=== PATIENT | female | born 1960 | race Caucasian/White ===

== ENCOUNTER 2020-07-24 06:38 | Outpatient (CLI) | payer SELFPAY ==
[2020-07-24 07:40] LABS: Basophils Absolute Auto 0.1 K/mm3 (0.0-0.1); Eosinophils Absolute Auto 0.2 K/mm3 (0-0.3); Eosinophils Percent Auto 4.8 % (0-4.4); Hematocrit 36.8 % (37.0-47.0); Immature Granulocyte Absolute 0.02 K/mm3 (0.00-0.031); Immature Granulocyte Percent A 0.5 % (0-0.5); Lymphocytes Absolute Auto 1.33 K/mm3 (0.9-3.2); Lymphocytes Percent Auto 33.9 % (18.3-44.2); Mean Corpuscular HGB Conc 32.6 g/dl (32-36); Mean Corpuscular Hemoglobin 32.3 pg (26-34); Mean Corpuscular Volume 99.2 fl (80-100); Mean Platelet Volume 9.7 fl (7.4-10.4); Monocytes Absolute Auto 0.3 K/mm3 (0.1-0.6); Monocytes Percent Auto 7.9 % (2.6-8.5); Neutrophils Percent Auto 50.9 % (45.5-73.1); Platelet Count Result 233 k/mm3 (150-375); Red Blood Count 3.71 M/mm3 (4.2-5.4); Red Cell Distribution Width 12.2 % (11.5-14.5); White Blood Count 3.9 K/mm3 (4.5-10.0)
[2020-07-24 07:53] LABS: Alanine Aminotransferase 16 U/L (4-35); Albumin Level 4.2 g/dL (3.5-5.1); Alkaline Phosphatase 66 U/L (38-126); Anion Gap 5 mmol/L (8-16); Aspartate Amino Transferase 25 U/L (14-36); Bilirubin,Total 1.3 mg/dL (0.2-1.3); Blood Urea Nitrogen 14 mg/dL (7-17); Calcium 9.4 mg/dL (8.4-10.2); Carbon Dioxide 30 mmol/L (22-30); Chloride 106 mmol/L (98-107); Cholesterol 198 mg/dL (0-200); Estimated Glomerular Filt Rate > 60; Glucose 101 mg/dL (65-105); HDL Direct 44 mg/dL; Potassium 4.5 mmol/L (3.4-5.0); Sodium 141 mmol/L (137-145); Triglycerides 195 mg/dL (<150)
[2020-07-24 08:04] LABS: LDL Cholesterol Direct 113 mg/dL
== END 2020-07-24 06:39 | disposition home or self-care (01) ==
PROVIDERS: PCP Internal Medicine; Visit Provider Nurse Practitioner
DX: Z13.29 Encounter for screening for other suspected endocrine disorder (principal); E03.9 Hypothyroidism, unspecified; Z13.220 Encounter for screening for lipoid disorders
CPT/HCPCS: 36415; 80053; 80061; 84443; 85025

== ENCOUNTER 2020-08-14 16:13 | Outpatient (CLI) | payer SELFPAY ==
--- NOTE | ~2020-08-14 | US_ITS ---
EXAMINATION: US soft tissue head and neck INDICATION: Palpable lump of the posterior neck TECHNIQUE: Targeted high-resolution soft tissue ultrasound is performed in the area of clinical magdy rn. COMPARISON: None available FINDINGS: No discrete mass is identified to correlate with the reported palpable abnormality of the p osterior neck. Normal subcutaneous tissues are identified. IMPRESSION: 1. No discrete sonographically detected masses identified. Clinical follow-up is recommended. Reviewed, dictated and finalized at location A. R DRIER OPERATOR IMPRESSION: 1. No discrete sonographically detected masses identified. Clinical follow-up i s recommended.
== END 2020-08-14 16:14 | disposition home or self-care (01) ==
LOC: ANHIMG 16:16
PROVIDERS: PCP Internal Medicine; Visit Provider Nurse Practitioner
DX: R22.1 Localized swelling, mass and lump, neck (principal)
CPT/HCPCS: 76536

== ENCOUNTER 2020-08-24 06:36 | Outpatient (CLI) | payer SELFPAY ==
[2020-08-24 07:36] LABS: Basophils Absolute Auto 0.1 K/mm3 (0.0-0.1); Basophils Percent Auto 1.6 % (0.2-1.2); Eosinophils Absolute Auto 0.2 K/mm3 (0-0.3); Eosinophils Percent Auto 3.8 % (0-4.4); Hematocrit 36.9 % (37.0-47.0); Hemoglobin 11.7 g/dL (12.0-15.0); Immature Granulocyte Absolute 0.02 K/mm3 (0.00-0.031); Immature Granulocyte Percent A 0.4 % (0-0.5); Lymphocytes Absolute Auto 1.35 K/mm3 (0.9-3.2); Mean Corpuscular HGB Conc 31.7 g/dl (32-36); Mean Corpuscular Hemoglobin 31.5 pg (26-34); Mean Corpuscular Volume 99.2 fl (80-100); Mean Platelet Volume 9.4 fl (7.4-10.4); Monocytes Absolute Auto 0.4 K/mm3 (0.1-0.6); Monocytes Percent Auto 8.7 % (2.6-8.5); Neutrophils Absolute Auto 2.5 K/mm3 (1.3-6.7); Neutrophils Percent Auto 55.5 % (45.5-73.1); Platelet Count Result 223 k/mm3 (150-375); Red Blood Count 3.72 M/mm3 (4.2-5.4); White Blood Count 4.5 K/mm3 (4.5-10.0)
== END 2020-08-24 06:37 | disposition home or self-care (01) ==
PROVIDERS: PCP Internal Medicine; Visit Provider Nurse Practitioner
DX: Z13.29 Encounter for screening for other suspected endocrine disorder (principal); E03.9 Hypothyroidism, unspecified
CPT/HCPCS: 36415; 84443; 85025

== ENCOUNTER 2020-08-25 01:49 | Outpatient (CLI) | payer OTHER, SELFPAY ==
[2020-08-25 18:59] LABS: SARS-CoV-2 RNA PCR Negative
== END 2020-08-25 01:50 | disposition home or self-care (01) ==
LOC: ANHCOVIDDT 01:49
PROVIDERS: PCP Internal Medicine; Visit Provider Internal Medicine Gastroenterology
DX: Z01.818 Encounter for other preprocedural examination (principal); Z20.828 Contact with and (suspected) exposure to other viral communicable diseases
CPT/HCPCS: 87635; C9803; U0003

== ENCOUNTER → 2020-08-29 14:11 | Day surgery (SDC) | payer SELFPAY ==
[2020-08-29 08:07] VITALS: BP 129/69; PULSE 79; RESP 20; TEMP 36; O2SAT 98; BMI 30.9
[2020-08-29] MEDS: LACTATED RINGERS 1,000 ML 150 ML IV CONT (08:22)
--- NOTE | 2020-08-29 08:58 | WPDANESEPPF ---
Anes - Initial Pre Proc Eval Procedure: Operation Date: 08/29/20 09:30 Proposed Procedures p Screening Colonoscopy - Enrrique Armando MD Date/Time: 08/29/20 08:58 Surgeon: Enrrique Armando MD Pre Op Diagnosis: Neoplasm Screening Patient Data Age: 60 Gender: F Height: 5 ft 7 in Weight: 89.6 kg Last Vital Signs Temp 96.8 F L 08/29/20 08:07 Pulse 79 08/29/20 08:07 Resp 20 08/29/20 08:07 BP 129/69 08/29/20 08:07 Pulse Ox 98 08/29/20 08:07 Allergies Allergy/AdvReac Type Severity Reaction Status Date / Time Penicillins Allergy Unknown Hives Verified 08/29/20 08:05 Home Medications Medication Instructions Recorded Confirmed Type cyanocobalamin (vitamin B-12) 1,000 mcg PO DAILY 09/19/19 08/22/20 History 1,000 mcg/mL oral drops sertraline 100 mg tablet 100 mg PO DAILY #90 tablet 07/04/20 08/22/20 Rx ferrous sulfate 325 mg (65 mg 325 mg PO DAILY 07/09/20 08/22/20 History iron) tablet sodium,potassium,mag sulfates 17.5 See Rx Instructions PO .COMPLEX 08/23/20 Rx gram-3.13 gram-1.6 gram oral soln #354 ml levothyroxine 137 mcg tablet 137 mcg PO DAILY #90 tablet 08/28/20 08/29/20 Rx Patient hx anesthesia problems: none Family hx anesthesia problems: none PMFSH Past Medical History Medical History (Updated 07/09/20 @ 08:26 by Kristin King NP) Depression with anxiety Hemorrhoids Hernia Hypothyroidism Surgical History Surgical History (Updated 09/19/19 @ 08:05 by Kristin Clayton CMA) H/O hand surgery screws in fingers H/O umbilical hernia repair H/O: hysterectomy Family History Family History (Updated 02/22/19 @ 15:03 by DOCTOR UNKNOWN) Father Diabetes mellitus Hypertension Family history of malignant neoplasm Family history of diabetes mellitus in first degree relative Mother Hypertension Family history of heart disease in male family member before age 55 Social History Social History (Updated 09/19/19 @ 07:43 by Kristin Clayton CMA) Smoking status: Never smoker Alcohol intake: never Substance use type: does not use Living arrangements: with family Spiritual care concerns: No Anes - Eval Final PreProcedure Day of Procedure 08/29/20 08:58 Patient weight: overweight Heart: regular rate and rhythm Lungs: clear to auscultation Airway: Mallampati scale class II Neurological: alert and oriented Last oral intake: >/= 8 hours ASA classification: II Emergent: no Anesthetic plan: proceed Anesthesia type and monitoring: general GIVS and standard monitoring Informed Consent: The patient's anesthetic plan and its attendant risks and benefits were discussed with the patient/family/POA. Questions were solicited and answers provided to the satisfaction of the patient/family/POA.
--- NOTE | 2020-08-29 09:20 | PM.HPGS ---
History of Present Illness History of Present Illness Consent: Risks, benefits, and alternatives have been discussed and questions answered. Patient agrees to proceed with procedure. Chief complaint: Neoplasm Screening Narrative: Lissa Bryant is a 60 year old female here for screening colonoscopy, last one 10 years ago. Review of Systems Constitutional: Constitutional: Denies headache(s) and Denies weakness Eyes: Eyes: Denies blurry vision ENT: Reports Normal hearing present, Denies headache(s) and Denies neck pain Cardiovascular: Cardiovascular: Denies chest pain and Denies dyspnea Respiratory: Respiratory: Denies dyspnea Gastrointestinal: Gastrointestinal: Reports no additional gastrointestinal complaints Genitourinary: Genitourinary: Denies dysuria Musculoskeletal: Musculoskeletal: Denies neck pain Integumentary/Breasts: Skin/Breast: Denies dry skin Neurologic: Reports Normal hearing present, Denies headache(s) and Denies weakness Psychiatric: Psychiatric: Denies anxiety Endocrine: Endocrine: Denies change in body appearance Hematologic/Lymphatic: Hematologic/Lymphatic: Denies easy bleeding Allergic/Immunologic: Allergic/Immunologic: Denies urticaria PMFSH Past Medical History Medical History (Updated 07/09/20 @ 08:26 by Kristin King NP) Depression with anxiety Hemorrhoids Hernia Hypothyroidism Surgical History Surgical History (Updated 09/19/19 @ 08:05 by Kristin Clayton CMA) H/O hand surgery screws in fingers H/O umbilical hernia repair H/O: hysterectomy Family History Family History (Updated 02/22/19 @ 15:03 by DOCTOR UNKNOWN) Father Diabetes mellitus Hypertension Family history of malignant neoplasm Family history of diabetes mellitus in first degree relative Mother Hypertension Family history of heart disease in male family member before age 55 Social History Social History (Updated 09/19/19 @ 07:43 by Kristin Clayton CMA) Smoking status: Never smoker Alcohol intake: never Substance use type: does not use Living arrangements: with family Spiritual care concerns: No Meds Home Medications and Allergies Home Medications Medication Instructions Recorded Confirmed Type cyanocobalamin (vitamin B-12) 1,000 mcg PO DAILY 09/19/19 08/22/20 History 1,000 mcg/mL oral drops sertraline 100 mg tablet 100 mg PO DAILY #90 tablet 07/04/20 08/22/20 Rx ferrous sulfate 325 mg (65 mg 325 mg PO DAILY 07/09/20 08/22/20 History iron) tablet sodium,potassium,mag sulfates 17.5 See Rx Instructions PO .COMPLEX 08/23/20 Rx gram-3.13 gram-1.6 gram oral soln #354 ml levothyroxine 137 mcg tablet 137 mcg PO DAILY #90 tablet 08/28/20 08/29/20 Rx Allergies Allergy/AdvReac Type Severity Reaction Status Date / Time Penicillins Allergy Unknown Hives Verified 08/29/20 08:05 Vital Signs Vital Signs - 24 hr 08/29/20 08:07 Temperature 96.8 F L Pulse Rate 79 Respiratory Rate 20 Blood Pressure 129/69 Pulse Oximetry 98 Exam Const: General: comfortable and no acute distress HENMT: General nose exam: Normal nares present Eyes: General: appearance normal, both eyes and all related structures Neck: Neck: no JVD Resp: Auscultation: clear to auscultation bilaterally Cardio: Rate: regular rate Rhythm: regular rhythm GI: Inspection: non-distended GI Palp: Yes Soft to palpation Skin: General skin exam: normal color Neuro: General: gait normal Speech: normal speech Extrem: General: normal to inspection Psych: Mental Status: mental status grossly normal Assessment and Plan Assessment and plan (1) Screening for colon cancer: Code(s): Z12.11 - Encounter for screening for malignant neoplasm of colon Status: Acute Assessment and Plan: will proceed with colonoscopy
[2020-08-29 09:43] VITALS: BP 109/73; PULSE 85; RESP 18; O2SAT 99
[2020-08-29 09:53] VITALS: BP 116/70; PULSE 60; RESP 17; O2SAT 97
[2020-08-29 10:02] VITALS: BP 121/77; PULSE 59; RESP 15; O2SAT 98
== END ==
PROVIDERS: PCP Internal Medicine; Visit Provider Internal Medicine Gastroenterology
PROC: 0DJD8ZZ Inspection of Lower Intestinal Tract, Via Natural or Artificial Opening Endoscopic (ICD-10-PCS; CPT 45378; principal; 2020-08-29 09:30)
DX: Z12.11 Encounter for screening for malignant neoplasm of colon (principal); K57.30 Diverticulosis of large intestine without perforation or abscess without bleeding; K64.8 Other hemorrhoids; E03.9 Hypothyroidism, unspecified; F41.8 Other specified anxiety disorders
CPT/HCPCS: 45378; J2704; J7120

== ENCOUNTER 2020-10-25 15:48 | Outpatient (CLI) | payer SELFPAY ==
[2020-10-25 16:09] LABS: Basophils Absolute Auto 0.1 K/mm3 (0.0-0.1); Basophils Percent Auto 1.4 % (0.2-1.2); Eosinophils Absolute Auto 0.2 K/mm3 (0-0.3); Eosinophils Percent Auto 3.7 % (0-4.4); Hematocrit 34.8 % (37.0-47.0); Hemoglobin 11.4 g/dL (12.0-15.0); Immature Granulocyte Absolute 0.01 K/mm3 (0.00-0.031); Immature Granulocyte Percent A 0.2 % (0-0.5); Lymphocytes Absolute Auto 1.56 K/mm3 (0.9-3.2); Lymphocytes Percent Auto 31.7 % (18.3-44.2); Mean Corpuscular HGB Conc 32.8 g/dl (32-36); Mean Corpuscular Hemoglobin 32.1 pg (26-34); Mean Platelet Volume 9.3 fl (7.4-10.4); Monocytes Absolute Auto 0.4 K/mm3 (0.1-0.6); Monocytes Percent Auto 7.5 % (2.6-8.5); Neutrophils Absolute Auto 2.7 K/mm3 (1.3-6.7); Neutrophils Percent Auto 55.5 % (45.5-73.1); Platelet Count Result 250 k/mm3 (150-375); Red Blood Count 3.55 M/mm3 (4.2-5.4); Red Cell Distribution Width 12.8 % (11.5-14.5); White Blood Count 4.9 K/mm3 (4.5-10.0)
[2020-10-25 17:28] LABS: Folic Acid 19.3 ng/mL (2.76->20)
== END 2020-10-25 15:49 | disposition home or self-care (01) ==
LOC: ANHLAB 15:49
PROVIDERS: PCP Internal Medicine; Visit Provider Nurse Practitioner
DX: D64.9 Anemia, unspecified (principal); E03.9 Hypothyroidism, unspecified
CPT/HCPCS: 36415; 82607; 82728; 82746; 84443; 85025

== ENCOUNTER 2021-01-04 15:51 | Emergency (ER) | payer SELFPAY ==
[2021-01-04 16:03] VITALS: BP 125/67; PULSE 67; RESP 20; TEMP 36.4; O2SAT 100
--- NOTE | 2021-01-04 16:28 | ED.FEMALEGU ---
HPI - Female Genitourinary General Chief complaint: Urogenital-Female Stated complaint: uti Time Seen by Provider: 01/04/21 16:28 Source: patient Mode of arrival: ambulatory Limitations: no limitations History of Present Illness HPI Narrative: Lissa Bryant is a 61 yo female with a PMH of hypothyroid and seasonal allergies who started experiencing frequency and burning last Thursday but she was out of town and tried to flush it out and drink cranberry juice to no avail. She has had no fever no nausea vomiting diarrhea no back pain no abdominal pain. She has had frequency dysuria however and a lot of burning at the end of urination Related Data Home Medications Medication Instructions Recorded Confirmed cyanocobalamin (vitamin B-12) 1,000 mcg PO DAILY 09/19/19 11/05/20 1,000 mcg/mL oral drops ferrous sulfate 325 mg (65 mg 325 mg PO DAILY 07/09/20 11/05/20 iron) tablet Allergies Allergy/AdvReac Type Severity Reaction Status Date / Time Penicillins Allergy Unknown Hives Verified 08/29/20 08:05 Review of Systems Review of Systems: Narrative: CONSTITUTIONAL: Denies fever, chills, sweats. EYES: Denies visual changes, redness, discharge. ENT: Denies rhinorrhea, congestion, sore throat, otalgia. CARDIOVASCULAR: Denies chest pain, palpitations, edema. RESPIRATORY:Denies dyspnea, wheezing, cough GASTROINTESTINAL: Denies abdominal pain, nausea, vomiting, diarrhea. GENITOURINARY: has dysuria,no hematuria, abnormal discharge SKIN: Denies rash or itching. NEUROLOGIC: Denies numbness, or focal weakness. PSYCHIATRIC: Denies anxiety or depression. [facility] Past Medical History Medical History Depression with anxiety Hemorrhoids Hernia Hypothyroidism Vitamin B12 deficiency anemia Surgical History Surgical History H/O hand surgery screws in fingers H/O umbilical hernia repair H/O: hysterectomy Family History Family History Father Diabetes mellitus Hypertension Family history of malignant neoplasm Family history of diabetes mellitus in first degree relative Mother Hypertension Family history of heart disease in male family member before age 55 Social History Social History Smoking status: Never smoker Alcohol intake: never Substance use type: does not use Spiritual care concerns: No Comments At time of signature, I agree with nursing past medical, surgical, social and family history. There is no relevant family history pertinent to the presenting complaint. Exam Narrative: Exam Narrative: GENERAL: This is a well-nourished, well-developed patient, in mild distress. HEAD: normocephalic, atraumatic. EYES: PERRL. Sclera clear/white. Vision is grossly intact. EARS: External ears normal, Hearing grossly intact. NOSE: External nose normal without nasal discharge, nares without redness, no rhinorrhea. THROAT: Mucous membranes moist, NECK: Neck supple, CARDIOVASCULAR: Regular rate and rhythm without murmurs, gallops, or rubs. RESPIRATORY: Clear to auscultation. Breath sounds equal bilaterally. No wheezes, rales, or rhonchi. GASTROINTESTINAL: Abdomen soft, SKIN: warm, intact with no suspicious lesions or rash, good texture and turgor. NEURO: awake, alert, and oriented to person, place and time. There were no obvious focal neurologic abnormalities. Steady gait EXTREMITIES: Normal range of motion. BACK: Nontender without deformity Course Course Emergency Course: Patient comes to [facility] with complaints of dysuria burning frequency. UA shows 1+ leukocytes and positive blood Started on Bactrim 801 [id number] every 12 hours x10 days; encourage drink water Vital Signs Vital signs: Vital Signs Temperature 97.5 F L 01/04/21 16:03 Pulse Rate 67 01/04/21 16:03 Respiratory Rat
== END 2021-01-04 16:41 | disposition home or self-care (01) ==
PROVIDERS: Emergency Provider Nurse Practitioner
DX: N30.01 Acute cystitis with hematuria (principal); E03.9 Hypothyroidism, unspecified; D50.9 Iron deficiency anemia, unspecified; F41.8 Other specified anxiety disorders
CPT/HCPCS: 81003; 87077; 87086; 87088; 87186; 99213; G0463

== ENCOUNTER 2021-06-20 16:08 | Outpatient (CLI) | payer SELFPAY | END 2021-06-20 16:09 | disposition home or self-care (01) | LOC: ANHLAB 16:09 | PROVIDERS: PCP Nurse Practitioner; Visit Provider Nurse Practitioner | DX: E03.9 Hypothyroidism, unspecified (principal) | CPT/HCPCS: 36415; 84443 ==

== ENCOUNTER 2021-10-14 10:25 | Outpatient (CLI) | payer SELFPAY ==
[2021-10-14 11:53] LABS: Free T4 Free Thyroxine 1.17 ng/mL (0.78-2.19)
[2021-10-16 07:20] LABS: Triiodothyronine T3 Free 2.8 pg/mL (2.3-4.2)
== END 2021-10-14 10:26 | disposition home or self-care (01) ==
PROVIDERS: PCP Internal Medicine; Visit Provider Nurse Practitioner
DX: E03.9 Hypothyroidism, unspecified (principal)
CPT/HCPCS: 36415; 84439; 84443; 84481

== ENCOUNTER 2022-10-10 16:15 | Outpatient (CLI) | payer OTHER, SELFPAY ==
[2022-10-10 16:31] LABS: Basophils Absolute Auto 0.1 K/mm3 (0.0-0.1); Basophils Percent Auto 1.7 % (0.2-1.2); Eosinophils Absolute Auto 0.2 K/mm3 (0-0.3); Hematocrit 34.6 % (37.0-47.0); Hemoglobin 11.2 g/dL (12.0-15.0); Immature Granulocyte Absolute 0.01 K/mm3 (0.00-0.031); Immature Granulocyte Percent A 0.2 % (0-0.5); Lymphocytes Absolute Auto 2.21 K/mm3 (0.9-3.2); Lymphocytes Percent Auto 46.3 % (18.3-44.2); Mean Corpuscular HGB Conc 32.4 g/dl (32-36); Mean Corpuscular Hemoglobin 32.5 pg (26-34); Mean Corpuscular Volume 100.3 fl (80-100); Mean Platelet Volume 9.5 fl (7.4-10.4); Monocytes Absolute Auto 0.3 K/mm3 (0.1-0.6); Monocytes Percent Auto 7.1 % (2.6-8.5); Neutrophils Absolute Auto 1.9 K/mm3 (1.3-6.7); Neutrophils Percent Auto 40.7 % (45.5-73.1); Platelet Count Result 244 k/mm3 (150-375); Red Blood Count 3.45 M/mm3 (4.2-5.4); Red Cell Distribution Width 12.4 % (11.5-14.5); White Blood Count 4.8 K/mm3 (4.5-10.0)
[2022-10-10 16:43] LABS: Alanine Aminotransferase 26 U/L (6-35); Albumin Level 4.2 g/dL (3.5-5.1); Alkaline Phosphatase 82 U/L (38-126); Anion Gap 6 mmol/L (8-16); Aspartate Amino Transferase 28 U/L (14-36); Bilirubin,Total 1.1 mg/dL (0.2-1.3); Blood Urea Nitrogen 19 mg/dL (7-17); Calcium 8.7 mg/dL (8.4-10.2); Carbon Dioxide 29 mmol/L (22-30); Chloride 105 mmol/L (98-107); Cholesterol 187 mg/dL (0-200); Estimated Glomerular Filt Rate > 60; Glucose 94 mg/dL (65-110); HDL Direct 44 mg/dL; Sodium 140 mmol/L (137-145); Triglycerides 224 mg/dL (<150)
[2022-10-10 16:53] LABS: LDL Cholesterol Direct 86 mg/dL
[2022-10-10 17:48] LABS: Folic Acid 6.5 ng/mL (2.76->20)
== END 2022-10-10 16:16 | disposition home or self-care (01) ==
LOC: ANHLAB 16:16
PROVIDERS: PCP Internal Medicine; Visit Provider Nurse Practitioner
DX: D51.9 Vitamin B12 deficiency anemia, unspecified (principal); E03.9 Hypothyroidism, unspecified; Z13.220 Encounter for screening for lipoid disorders; Z13.29 Encounter for screening for other suspected endocrine disorder
CPT/HCPCS: 36415; 80053; 80061; 82607; 82728; 82746; 84443; 85025

== ENCOUNTER 2022-10-17 16:38 | Outpatient (CLI) | payer OTHER, SELFPAY ==
[2022-10-17 17:18] LABS: Immature Reticulocyte Fraction 22.9 % (3.0-15.9); Reticulocyte Hemoglobin Conten 35.8 pg (28.2-35.7); Reticulocyte Percent 5.06 % (0.7-4.3); Reticulocytes Absolute 0.16 B/L (32.2-175.7)
== END 2022-10-17 16:39 | disposition home or self-care (01) ==
LOC: ANHLAB 16:39
PROVIDERS: PCP Internal Medicine; Visit Provider Nurse Practitioner
DX: D64.9 Anemia, unspecified (principal)
CPT/HCPCS: 36415; 85046

== ENCOUNTER 2023-01-06 14:59 | Outpatient (CLI) | payer SELFPAY ==
[2023-01-06 16:28] LABS: Alanine Aminotransferase 32 U/L (6-35); Albumin Level 4.5 g/dL (3.5-5.1); Alkaline Phosphatase 90 U/L (38-126); Anion Gap 8 mmol/L (8-16); Aspartate Amino Transferase 29 U/L (14-36); Bilirubin,Total 1.2 mg/dL (0.2-1.3); Blood Urea Nitrogen 17 mg/dL (7-17); Calcium 9.3 mg/dL (8.4-10.2); Carbon Dioxide 27 mmol/L (22-30); Chloride 104 mmol/L (98-107); Estimated Glomerular Filt Rate 56; Glucose 98 mg/dL (65-110); Potassium 4.1 mmol/L (3.4-5.0); Sodium 139 mmol/L (137-145)
[2023-01-06 16:32] LABS: Basophils Absolute Auto 0.1 K/mm3 (0.0-0.1); Eosinophils Absolute Auto 0.2 K/mm3 (0-0.3); Eosinophils Percent Auto 4.7 % (0-4.4); Hematocrit 36.1 % (37.0-47.0); Hemoglobin 11.6 g/dL (12.0-15.0); Immature Granulocyte Absolute 0.02 K/mm3 (0.00-0.031); Immature Granulocyte Percent A 0.4 % (0-0.5); Lymphocytes Absolute Auto 1.96 K/mm3 (0.9-3.2); Lymphocytes Percent Auto 38.4 % (18.3-44.2); Mean Corpuscular HGB Conc 32.1 g/dl (32-36); Mean Corpuscular Hemoglobin 32.1 pg (26-34); Mean Platelet Volume 10.7 fl (7.4-10.4); Monocytes Absolute Auto 0.4 K/mm3 (0.1-0.6); Monocytes Percent Auto 6.9 % (2.6-8.5); Neutrophils Absolute Auto 2.4 K/mm3 (1.3-6.7); Neutrophils Percent Auto 47.6 % (45.5-73.1); Platelet Count Result 254 k/mm3 (150-375); Red Blood Count 3.61 M/mm3 (4.2-5.4); White Blood Count 5.1 K/mm3 (4.5-10.0)
[2023-01-06 16:52] LABS: Iron 78 ug/dL (37-170)
[2023-01-06 17:09] LABS: Percent Iron Saturation 27 % (20-50)
[2023-01-06 17:34] LABS: Folic Acid 5.9 ng/mL (2.76->20)
[2023-01-09 17:28] LABS: Albumin 4.3 g/dL (3.8-4.8); Alpha 1 Globulin 0.3 g/dL (0.2-0.3); Alpha 2 Globulin 0.6 g/dL (0.5-0.9); Beta 1 Globulin 0.5 g/dL (0.4-0.6); Gamma Globulin 1.4 g/dL (0.8-1.7); Protein, Total 7.4 g/dL (6.1-8.1)
[2023-01-10 04:12] LABS: Methylmalonic Acid 156 nmol/L (87-318)
== END 2023-01-06 15:00 | disposition home or self-care (01) ==
LOC: ANHLAB 15:03
PROVIDERS: PCP Internal Medicine; Visit Provider Internal Medicine Hematology & Oncology
DX: D64.9 Anemia, unspecified (principal)
CPT/HCPCS: 36415; 80053; 82607; 82728; 82746; 83540; 83550; 83921; 84155; 84165; 84238; 84443; 85025

== ENCOUNTER 2023-05-20 06:59 | Outpatient (CLI) | payer SELFPAY ==
[2023-05-20 08:54] LABS: Basophils Absolute Auto 0.1 K/mm3 (0.0-0.1); Basophils Percent Auto 1.9 % (0.2-1.2); Eosinophils Absolute Auto 0.2 K/mm3 (0-0.3); Eosinophils Percent Auto 4.5 % (0-4.4); Hematocrit 35.8 % (37.0-47.0); Hemoglobin 11.3 g/dL (12.0-15.0); Immature Granulocyte Absolute 0.01 K/mm3 (0.00-0.031); Immature Granulocyte Percent A 0.2 % (0-0.5); Lymphocytes Absolute Auto 1.36 K/mm3 (0.9-3.2); Lymphocytes Percent Auto 32.5 % (18.3-44.2); Mean Corpuscular HGB Conc 31.6 g/dl (32-36); Mean Corpuscular Hemoglobin 31.6 pg (26-34); Monocytes Absolute Auto 0.3 K/mm3 (0.1-0.6); Monocytes Percent Auto 7.7 % (2.6-8.5); Neutrophils Absolute Auto 2.2 K/mm3 (1.3-6.7); Neutrophils Percent Auto 53.2 % (45.5-73.1); Platelet Count Result 243 k/mm3 (150-375); Red Blood Count 3.58 M/mm3 (4.2-5.4); White Blood Count 4.2 K/mm3 (4.5-10.0)
[2023-05-20 09:03] LABS: Potassium 3.6 mmol/L (3.4-5.0)
[2023-05-20 09:07] LABS: Alanine Aminotransferase 28 U/L (6-35); Albumin Level 4.3 g/dL (3.5-5.1); Alkaline Phosphatase 78 U/L (38-126); Anion Gap 9 mmol/L (8-16); Aspartate Amino Transferase 24 U/L (14-36); Bilirubin,Total 1.4 mg/dL (0.2-1.3); Blood Urea Nitrogen 18 mg/dL (7-17); Calcium 9.1 mg/dL (8.4-10.2); Carbon Dioxide 25 mmol/L (22-30); Chloride 106 mmol/L (98-107); Cholesterol 184 mg/dL (0-200); Estimated Glomerular Filt Rate > 60; Glucose 99 mg/dL (65-110); HDL Direct 40 mg/dL; Sodium 140 mmol/L (137-145); Triglycerides 222 mg/dL (<150)
[2023-05-20 09:14] LABS: LDL Cholesterol Direct 89 mg/dL
[2023-05-20 10:09] LABS: Folic Acid 4.6 ng/mL (2.76->20)
== END 2023-05-20 07:00 | disposition home or self-care (01) ==
LOC: ANHLAB 07:01
PROVIDERS: PCP Internal Medicine; Visit Provider Nurse Practitioner
DX: D64.9 Anemia, unspecified (principal); D51.8 Other vitamin B12 deficiency anemias; E03.9 Hypothyroidism, unspecified; Z13.220 Encounter for screening for lipoid disorders; Z13.29 Encounter for screening for other suspected endocrine disorder
CPT/HCPCS: 36415; 80053; 80061; 82306; 82607; 82746; 84443; 85025

== ENCOUNTER 2025-02-10 09:33 | Outpatient (CLI) | payer MEDICARE, SELFPAY ==
--- OUTSIDE RECORDS SUMMARY | 2025-02-10 10:03 | XMS_ITS | Clinical Summary ---
Author Organization [facility] Carmen Parkinson Address [address] [place] [address] Care Team Providers Care Sales Vice President Name Role Phone Unavailable Primary Care Provider Unavailabl e Allergies Active Allergy Reactions Criticality Noted Date Comments Penicillins Rash Low 12/30/2022 Medications levothyroxine 175 mcg tablet Take 175 mcg by mouth daily. 10/15/2022 Active sertraline (ZOLOFT) 100 mg tablet Take 100 mg by mouth daily. 11/03/2022 Active cyanocobalamin 1,000 mcg Tablet Take 1,000 mcg by mouth daily. Active ferrous sulfate 134 mg (27 mg iron) Tablet Take 134 mg by mouth. Active ibuprofen (MOTRIN) 600 mg tablet Take 600 mg by mouth every 6 hours as needed for Pain, Mild. Active Active Problems No known active problems Family History Medical History Relation Name Comments Cancer Father Diabetes Father Heart Disease Father Heart Disease Mother Relation Name Status Comments Daughter Alive Father Mother Alive Sister 1 Alive Sister 2 Alive Sister 3 Alive Son Alive Social History Tobacco Use Types Packs/Day Years Used Date Smoking Tobacco: Never Smokeless Tobacco: Never Tobacco Cessation:Counseling Given: Not Answered Alcohol Use Standard Drinks/Week Comments Not Currently 0 (1 standard drink = 0.6 oz pur e alcohol) Comments Unknown Sex and Gender Information Value Date Recorded Sex Assigned at Not on file 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 Gender Identity Not on file Sexual Orientation Not on file Last Filed Vital Signs Vital Sign Reading Time Taken Comments Blood Pressure 129/69 01/13/2023 2:23 PM CDT Pulse 76 01/13/2023 2:23 PM CDT Temperature 36.4 C (97.6 F) 01/13/2023 2:23 PM CDT Respiratory Rate 10 01/13/2023 2:23 PM CDT Oxygen Saturation 97% 01/13/2023 2:23 PM CDT Inhaled Oxygen Concentration - - Weight 98.9 kg (218 lb) 01/13/2023 2:23 PM CDT Height 170.2 cm (5' 7) 12/30/2022 3:51 PM CDT Body Mass Index 34.14 12/30/2022 3:51 PM CDT Plan of Treatment Health Maintenance Due Date Last Done Comments DTAP/TDAP/TD VACCINES (1 - Tdap) 12/31/1978 COLORECTAL SCREENING 12/31/2004 Colorectal Cancer Screening 12/31/2004 FIT-DNA Q 3 years 12/31/2004 FIT/FOBT Q 1 year 12/31/2004 Flex Sig/CT Colonography Q 5 years 12/31/2004 PNEUMOCOCCAL VACCINE 50+ YEA RS (1 of 1 - PCV) 12/31/2009 ZOSTER VACCINE (1 of 2) 12/31/2009 BREAST CANCER SCREENING 01/14/2022 01/15/20, 01/14/2021, 03/25/2019, Additional history exists INFLUENZA VACCINE (#1) 2024 OSTEOPOROSIS SCREENING 12/31/2024 RSV VACCINE (60+ or ) (1 - 1-dose 75+ series) 12/31/2034
[2025-02-10 10:47] LABS: Basophils Absolute Auto 0.1 K/mm3 (0.0-0.1); Basophils Percent Auto 1.5 % (0.2-1.2); Eosinophils Absolute Auto 0.2 K/mm3 (0-0.3); Eosinophils Percent Auto 4.7 % (0-4.4); Hematocrit 33.7 % (37.0-47.0); Hemoglobin 10.9 g/dL (12.0-15.0); Immature Granulocyte Absolute 0.02 K/mm3 (0.00-0.031); Immature Granulocyte Percent A 0.5 % (0-0.5); Lymphocytes Percent Auto 34.9 % (18.3-44.2); Mean Corpuscular HGB Conc 32.3 g/dl (32-36); Mean Corpuscular Hemoglobin 32.6 pg (26-34); Mean Corpuscular Volume 100.9 fl (80-100); Mean Platelet Volume 9.4 fl (7.4-10.4); Monocytes Absolute Auto 0.3 K/mm3 (0.1-0.6); Monocytes Percent Auto 7.7 % (2.6-8.5); Neutrophils Percent Auto 50.7 % (45.5-73.1); Platelet Count Result 253 k/mm3 (150-375); Red Blood Count 3.34 M/mm3 (4.2-5.4); Red Cell Distribution Width 12.5 % (11.5-14.5)
[2025-02-10 11:04] LABS: Alanine Aminotransferase 20 U/L (6-35); Albumin Level 4.3 g/dL (3.5-5.1); Alkaline Phosphatase 66 U/L (38-126); Anion Gap 7 mmol/L (4-12); Aspartate Amino Transferase 32 U/L (14-36); Bilirubin,Total 1.6 mg/dL (0.2-1.3); Blood Urea Nitrogen 19 mg/dL (7-17); Calcium 9.4 mg/dL (8.4-10.2); Carbon Dioxide 26 mmol/L (22-30); Chloride 106 mmol/L (98-107); Cholesterol 184 mg/dL (0-200); Estimated Glomerular Filt Rate > 60; Glucose 100 mg/dL (65-110); HDL Direct 51 mg/dL; Potassium 4.1 mmol/L (3.4-5.0); Sodium 139 mmol/L (137-145); Total Protein 7.5 g/dL (6.3-8.2); Triglycerides 148 mg/dL (<150)
[2025-02-10 11:14] LABS: LDL Cholesterol Direct 87 mg/dL
[2025-02-10 11:41] LABS: Vitamin D 25 Hydroxy < 12.8 ng/mL
== END 2025-02-10 09:34 | disposition home or self-care (01) ==
PROVIDERS: PCP Internal Medicine; Visit Provider Nurse Practitioner
DX: D64.89 Other specified anemias (principal); D51.8 Other vitamin B12 deficiency anemias; E03.9 Hypothyroidism, unspecified; Z13.220 Encounter for screening for lipoid disorders; Z13.29 Encounter for screening for other suspected endocrine disorder; E55.9 Vitamin D deficiency, unspecified
CPT/HCPCS: 36415; 80053; 80061; 82306; 82607; 82746; 84443; 85025

== ENCOUNTER 2025-02-14 09:50 | Outpatient (CLI) | payer MEDICARE, SELFPAY ==
--- NOTE | ~2025-02-14 | US_ITS ---
EXAMINATION: US soft tissue chest DATE: 02/14/2025 10:08 INDICATION: Localized swelling, mass or lump at the base of the right neck TECHNIQUE: Multiple grayscale and Doppler ultrasound images of the region of concern at the anterior right base of the neck were obtained. COMPARISON: None FINDINGS: Imaging at the site of the palpable abnormality overlies the right sternoclavicular joint. There is a symmetric anterior bulging of the joint capsule when compared with the contralateral left sternoclavi cular joint. No pathologically enlarged lymphadenopathy or other abnormal masses or fluid collections identified in the region of concern. IMPRESSION: 1. Asymmetric anterior bulging of the right sternoclavicular joint capsule which could be due to unde rlying joint effusion or synovitis and which appears to account for the palpable abnormality of magdy rn. Reviewed, dictated and finalized at location A. IMPRESSION: 1. Asymmetric anterior bulging of the right sternoclavicular joint capsule whic h could be due to underlying joint effusion or synovitis and which appears to a ccount for the palpable abnormality of concern.
--- NOTE | ~2025-02-14 | XR_ITS ---
AP and lateral views of the right hip Clinical history: Pain Findings: No acute fracture or dislocation is seen. Osseous alignment is anatomic. Right hip joint is intact. Soft tissues are unremarkable. Impression: No significant abnormality is seen. Reviewed, dictated and finalized at location M. Impression: No significant abnormality is seen.
== END 2025-02-14 09:51 | disposition home or self-care (01) ==
LOC: GOSHIMG 09:50
PROVIDERS: PCP Internal Medicine; Visit Provider Nurse Practitioner
DX: R22.1 Localized swelling, mass and lump, neck (principal); M25.551 Pain in right hip
CPT/HCPCS: 73502; 76604

== ENCOUNTER 2025-04-05 08:39 | Outpatient (CLI) | payer MEDICARE, SELFPAY ==
--- OUTSIDE RECORDS SUMMARY | 2025-04-05 08:47 | XMS_ITS | Clinical Summary ---
Author Organization [facility] Carmen mcleod Iggy Address [address] [place] [address] Care Team Providers Care Supervisor Electronic Coils Name Role Phone Unavailable Primary Care Provider [...] Active Active Problems No known active problems Encounters Date Type Department Care Team Description 03/30/2025 Orders Only [facility] Oncology and Hematology - [place] [address] [facility] [address] [place] [address] Nelson Marvin MD Chronic anemia (Primary Dx) from Last 3 Months Family History Medical History Relation Name Comments [...] on file 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 Gender Identity Not on file Sexual Orientation [...] 12/30/2022 3:51 PM CDT Plan of Treatment Upcoming Encounters Date Type Department Care Team (Late st Contact Info) Description 04/11/2025 10:00 AM CDT Office Visit [facility] Oncology and Hematology [facility] [address] [facility] [address] [place] [address] Nelson Marvin MD [address] [facility] [address] [place] [address] Health Maintenance Due Date Last Done Comments DTAP/TDAP/TD VACCINES (1 - Tdap) 12/31/1978 COLORECTAL SCREENING 12/31/2004 Colorectal Cancer Screening 12/31/2004 FIT-DNA Q 3 years 12/31/2004 FIT/FOBT Q 1 year 12/31/2004 Flex Sig/CT Colonography Q 5 years 12/31/2004 PNEUMOCOCCAL VACCINE 50+ YEA RS (1 of 1 - PCV) 12/31/2009 ZOSTER VACCINE (1 of 2) 12/31/2009 BREAST CANCER SCREENING 01/14/2022 01/15/20 21, 01/14/2021, 03/25/2019, Additional history exists OSTEOPOROSIS SCREENING 12/31/2024 INFLUENZA VACCINE (#1) 2025 RSV VACCINE (60+ or ) (1 - 1-dose 75+ series) 12/31/2034
--- OUTSIDE RECORDS SUMMARY | 2025-04-05 08:47 | XMS_ITS | Clinical Summary ---
Author Organization [facility] al Address [address] [place] [address] Care Team Providers Care Faa Certified Powerplant Mechanic Name Role Phone Shine Montes DO Primary Care Provider +1- [phone] Encounters Date Type Department Care Team Description 03/13/2025 6:53 AM CDT - 03/13/2025 11:59 PM CDT Hospital Encounter [facility] Breast Imaging [facility] ([facility]) [address] [place] [phone] Screening mammogram, encounter for Discharge Disposition: Discharge to home or self care from Last 3 Months Surgical History Surgery Date Site/Laterality Comments [place] TOTAL ABDOMINAL HYSTERECT W/WO RMVL TUBE OVARY Hysterectomy - (Added by TW Conv) Family History Medical History Relation Name Comments Cancer Father Cancer - (Added by TW Conv) Diabetes Father Diabetes Mellit us - (Added by TW Conv) Heart disease Father Heart Disease - (Added by TW Conv) Hypertension Father Hypertension - (Added by TW Conv) Depression Mother Depression - (A dded by TW Conv) Heart disease Mother Heart Disease - (Added by TW Conv) Hypertension Mother Hypertension - (Added by TW Conv) Cancer Other Cancer - (Added by TW Conv) Diabetes Sister Diabetes Mellit us - (Added by TW Conv) Relation Name Status Comments Father Mother Other Sister Social History Tobacco Use Types Packs/Day Years Used Date Smoking Tobacco: Never Personal Safety Answer Date Recorded Getting School Help Needed Not on file 11/20 Comments No Sex and Gender Information Value Date Recorded Sex Assigned at Not on file 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 Gender Identity Not on file Sexual Orientation Not on file Obstetrics History Para Term AB IAB SAB Ectopic Multiple Livin g Live Births 2 2 2 Date Outcome GA Total Labor Labor/2nd/3rd Weight Sex Type Anes PTL Nataly A1 A5 Name Clin Term Term Last Filed Vital Signs Vital Sign Reading Time Taken Comments Blood Pressure - - Pulse - - Temperature - - Respiratory Rate - - Oxygen Saturation - - Inhaled Oxygen Concentration - - Weight 90.7 kg (200 lb) 03/13/2025 7:07 AM CDT Height - - Body Mass Index - - Plan of Treatment Health Maintenance Due Date Last Done Comments Colon Cancer Screening-Colonoscopy 1960 Depression Screening 1960 Fall Risk Assessment 1960 Hepatitis C Screening 1960 Osteoporosis Screening-Bone Density Scan 1960 DTaP/Tdap/Td Vaccine (1 - Tdap) 12/31/1970 Hepatitis B Screening 12/31/1977 Pneumococcal vaccine 65+ (1 of 1 - PCV) 12/31/2009 Zoster Vaccine (1 of 2) 12/31/2009 Well Visit 65+ 12/31/2024 Influenza Vaccine (#1) 2025 07/19/2020, 2013 Breast Cancer Screening-Mammogram 03/13/2026 03/13/2025, 01/14/2021, 03/25/2019, Additional history exists Procedures Procedure Name Priority Date/Time Associated Diagnosis Comments SCREENING MAMMOGRAM BILATERAL W ANGUS Schedule Routine, Read Routine (OP Routine) 03/13/2025 7:14 AM CDT Screening mammogram, encounter for from Last 3 Months Results * Screening Mammogram Bilateral W Angus (03/13/2025 7:14 AM CDT) Anatomical Region Laterality Modality Breast Bilateral Mammography Impressions 03/13/2025 6:25 PM CDT Bilateral No evidence of malignancy in either breast. OVERALL BI-RADS FINAL ASSESSMENT: 1 - Negative RECOMMENDATION: Recommend bilateral annual screening mammography. Narrative 03/13/2025 6:25 PM CDT EXAMINATION: Screening Mammogram Bilateral W Angus: 03/13/2025 COMPARISON: Relevent prior studies available at the time of interpretation were reviewed, including the most recent mammogram on: 01/14/2021. TECHNIQUE: Mammography was performed with 2D and digital breast tomosynthesis (DBT) images. CAD was utilized. BREAST PARENCHYMAL COMPOSITION: The breasts are almost entirely fatty. FINDINGS: Bilateral There is no suspicious mass, calcification, or architectural distortion in either breast. us Self Screening Mammogram IMG MAMMO PROCEDURES Fi nal Result from Last 3 Months Insurance [employer] MEDICARE PPO [employer] MED[employer]ARE PPO Care Teams Faa Certified Powerplant Mechanic Relationship Specialty Start Date End Date Shine Montes DO PCP - General 01/14/21
--- OUTSIDE RECORDS SUMMARY | 2025-04-05 08:47 | XMS_ITS | Referral Summary ---
Author Organization [facility] al Address [address] [place] [address] Care Team Providers Care Casino Banker Name Role Phone Shine Montes DO Primary Care Provider [phone]- [phone] Encounters Date Type Department Care Team Description 03/13/2025 6:53 AM CDT - 03/13/2025 11:59 PM CDT Hospital Encounter [facility] Breast [facility] ([facility]) [address] [place] [address] [phone] Screening mammogram, encounter for Discharge Disposition: Discharge to home or self care from Last 3 Months Social History Tobacco Use Types Packs/Day Years Used Date Smoking Tobacco: Never Personal Safety Answer Date Recorded Getting School Help Needed Not on file 11/20 Comments No Sex and Gender Information Value Date Recorded Sex Assigned at Not on file 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 Gender Identity Not on file Sexual Orientation Not on file Last Filed Vital Signs Vital Sign Reading Time Taken Comments Blood Pressure - - Pulse - - Temperature - - Respiratory Rate - - Oxygen Saturation - - Inhaled Oxygen Concentration - - Weight 90.7 kg (200 lb) 03/13/2025 7:07 AM CDT Height - - Body Mass Index - - Plan of Treatment Not on file Procedures Procedure Name Priority Date/Time Associated Diagnosis [...] nal Result from Last 3 Months Insurance [employer] MEDICARE PPO [employer] MED[employer] PPO Care Teams Casino Banker Relationship Specialty Start Date End Date Shine Montes DO PCP - General 01/14/21
[2025-04-05 08:50] LABS: Hematocrit 32.5 % (37.0-47.0); Hemoglobin 10.3 g/dL (12.0-15.0); Immature Granulocyte Percent A 0.2 % (0-0.5); Lymphocytes Absolute Auto 1.74 K/mm3 (0.9-3.2); Mean Corpuscular HGB Conc 31.7 g/dl (32-36); Mean Corpuscular Hemoglobin 31.9 pg (26-34); Mean Corpuscular Volume 100.6 fl (80-100); Nucleated Red Blood Cells Absolute Auto 0.000 K/mm3 (0.0-0.012); Nucleated Red Blood Cells Perc 0.0 % (0.0-0.2); Platelet Count Result 239 k/mm3 (150-375); Red Blood Count 3.23 M/mm3 (4.2-5.4); White Blood Count 4.8 K/mm3 (4.5-10.0)
[2025-04-05 11:01] LABS: Alanine Aminotransferase 21 U/L (6-35); Albumin Level 4.1 g/dL (3.5-5.1); Alkaline Phosphatase 74 U/L (38-126); Anion Gap 6 mmol/L (4-12); Aspartate Amino Transferase 25 U/L (14-36); Bilirubin,Total 1.1 mg/dL (0.2-1.3); Blood Urea Nitrogen 18 mg/dL (7-17); Calcium 9.1 mg/dL (8.4-10.2); Carbon Dioxide 26 mmol/L (22-30); Chloride 106 mmol/L (98-107); Estimated Glomerular Filt Rate 58; Glucose 112 mg/dL (65-110); Potassium 4.0 mmol/L (3.4-5.0); Sodium 138 mmol/L (137-145); Total Protein 7.3 g/dL (6.3-8.2)
== END 2025-04-05 08:40 | disposition home or self-care (01) ==
LOC: ANHLAB 08:39
PROVIDERS: PCP Internal Medicine; Visit Provider Internal Medicine Hematology & Oncology
DX: D64.9 Anemia, unspecified (principal)
CPT/HCPCS: 36415; 80053; 81001; 85025

== ENCOUNTER 2025-04-05 09:04 | Outpatient (CLI) | payer MEDICARE, SELFPAY ==
--- OUTSIDE RECORDS SUMMARY | 2025-04-05 09:19 | XMS_ITS | Referral Summary ---
Author Organization [facility] al Address [address] [place] [address] Care Team Providers Care Hotel Or Motel Receptionist Name Role Phone Shine Montes DO Primary Care Provider +1- [phone] Encounters Date Type Department Care Team Description 03/13/2025 6:53 AM CDT - 03/13/2025 11:59 PM CDT Hospital Encounter [facility] Breast Imaging [facility] ([facility]) [address] [place] [address] [phone] Screening mammogram, encounter for Discharge Disposition: Discharge to home or self care from Last 3 Months Social History Tobacco Use Types Packs/Day Years Used Date Smoking Tobacco: Never Personal Safety Answer Date Recorded Getting School Help Needed Not on file 11/20 Comments No Sex and Gender Information Value Date Recorded Sex Assigned at Not on file 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
--- OUTSIDE RECORDS SUMMARY | 2025-04-05 09:19 | XMS_ITS | Clinical Summary ---
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
--- OUTSIDE RECORDS SUMMARY | 2025-04-05 09:19 | XMS_ITS | Clinical Summary ---
Author Organization [facility] al Address 1 [place] [address] Care Team Providers Care Powder Mixer Name Role Phone Shine Montes DO Primary Care Provider +1- [phone] Encounters Date Type Department Care Team Description 03/13/2025 6:53 AM CDT - 03/13/2025 11:59 PM CDT Hospital Encounter [facility] Breast [facility] ([facility]) [address] [place] [phone] Screening mammogram, encounter for Discharge Disposition: Discharge to home or self care from Last 3 Months Surgical History Surgery Date Site/Laterality Comments [place] TOTAL ABDOMINAL HYSTERECT W/WO RMVL TUBE OVARY [...] on file Legal Sex Female 5:56 AM 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
[2025-04-05 19:57] LABS: Add Urine Microscopic? YES; Appearance Urine Clear (Clear); Glucose Urine UA Negative (Negative); Leukocyte Esterase Ur Trace LEU/UL (Negative); Nitrate Urine Negative (Negative); Non Pathogenic Casts 0-2; Specific Grav Ur 1.013 (1.001-1.035)
== END 2025-04-05 09:05 | disposition home or self-care (01) ==
LOC: ANHGOSHLAB 09:05
PROVIDERS: PCP Internal Medicine; Visit Provider Clinical Nurse Specialist
DX: R31.9 Hematuria, unspecified (principal)
CPT/HCPCS: 81001

== ENCOUNTER 2025-04-11 10:08 | Outpatient (CLI) | payer MEDICARE, SELFPAY ==
--- OUTSIDE RECORDS SUMMARY | 2025-04-11 10:33 | XMS_ITS | Referral Summary ---
Author Organization [facility] al Address [address] [place] [address] Care Team Providers Care Industrial Economics Teacher Name Role Phone Shine Montes DO Primary Care Provider +1- [phone] Encounters Date Type Department Care Team Description 03/13/2025 6:53 AM CDT - 03/13/2025 11:59 PM CDT Hospital Encounter [facility] Breast Imaging [facility] ([facility]) [address] [place] [phone] Screening mammogram, encounter for Discharge Disposition: Discharge to home or self care from Last 3 Months Social History Tobacco Use Types Packs/Day Years Used Date Smoking Tobacco: Never Personal Safety Answer Date Recorded Getting School Help Needed Not on file 11/20 Comments No Sex and Gender Information Value Date Recorded Sex Assigned at Not on file 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
--- OUTSIDE RECORDS SUMMARY | 2025-04-11 10:33 | XMS_ITS | Clinical Summary ---
Author Organization [facility] al Address [address] [place] [address] Care Team Providers Care Building Construction Contractor Name Role Phone Shine Montes DO Primary Care Provider +1- [phone] Encounters Date Type Department Care Team Description 03/13/2025 6:53 AM CDT - 03/13/2025 11:59 PM CDT Hospital Encounter [facility] Breast Imaging [facility] ([facility]) [address] [place] [phone] Screening mammogram, encounter for Discharge Disposition: Discharge to home or self care from Last 3 Months Surgical History Surgery Date Site/Laterality Comments [place] TOTAL ABDOMINAL HYSTERECT W/WO RMVL TUBE OVARY [...] on file 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
--- OUTSIDE RECORDS SUMMARY | 2025-04-11 10:33 | XMS_ITS | Encounter Summary ---
Author Organization [facility] Address [address] [place] [address] Care Team Providers Care Shot Polisher And Inspector Name Role Phone Unavailable Primary Care Provider Unavailabl e Reason for Visit * Reason Comments Follow Up Encounter Details Date Type Department Care Team (Late st Contact Info) Description 04/11/2025 10:00 AM CDT Office Visit [facility] Oncology and Hematology - [place] [address] [facility] [address] [place] [address] Nelson Marvin MD [address] [facility] [address] [place] [address] Chronic anemia (Primary Dx) Social History Tobacco Use Types Packs/Day Years Used Date Smoking Tobacco: Never Smokeless Tobacco: Never Alcohol Use Standard Drinks/Week Comments Not Currently 0 (1 standard drink = 0.6 oz pur e alcohol) Comments Unknown Sex and Gender Information Value Date Recorded Sex Assigned at Not on file 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 Gender Identity Not on file Sexual Orientation Not on file documented as of this encounter Last Filed Vital Signs Vital Sign Reading Time Taken Comments Blood Pressure 130/78 04/11/2025 9:48 AM CDT Pulse 76 04/11/2025 9:48 AM CDT Temperature 36.7 C (98.1 F) 04/11/2025 9:48 AM CDT Respiratory Rate 15 04/11/2025 9:48 AM CDT Oxygen Saturation 95% 04/11/2025 9:48 AM CDT Inhaled Oxygen Concentration - - Weight 94.4 kg (208 lb 3.2 oz) 04/11/2025 9:48 A M CDT Height - - Body Mass Index 32.61 12/30/2022 3:51 PM CDT documented in this encounter Progress Notes * Nelson Marvin MD - 04/11/2025 9:55 AM CDT HEMATOLOGY / ONCOLOGY PROGRESS NOTE Patient Identification: Name: Lissa Bryant Age: 65 y.o. Sex: female : 1960 DIAGNOSIS Macrocytic anemia CURRENT TREATMENT Iron 65 mg vitamin B12 1 mg daily TREATMENT HISTORY SUBJECTIVE Patient came to the office for follow-up visit. She is complaining of more tiredness and fatigue but denies any bleeding and bruising. She has lost 10 pound weight. No chest pain or shortness of breath. No other new complaints. Review of system Constitutional: Patient did not mention fevers, sweats, complain of tiredness and fatigue, 10 poundweight loss HEENT: Patient did not mention sinus congestion, hearing or vision problems Respiratory: Patient did not mention cough, dyspnea, wheeze Cardiovascular: Patient did not mention chest pain, exertional chest pressure/discomfort, nausea, syncope, shortness of breath GI: Patient did not mention constipation, diarrhea, dsyphagia, reflux symptoms, vomiting, melena : Patient did not mention dysuria, frequency, incontinence, urgency Integumentary system: no lymphadenopathy, sweats, flushing Musculoskeletal: Patient not mention: myalgia, arthralgia Neurological: Patient did not mention blurry or disturbed vision, numbness/weakness, dizziness Skin: No lumps, bumps or rashes. 12 point review of system was reviewed Objective: Vital signs in last 24 hours: As per nursing note Exam: General appearance: alert, cooperative, no distress, appears stated age Head: normocephalic, without obvious abnormality, atraumatic Eyes: conjunctivae/corneas clear, EOM's intact Ears: normal external ear canals AU Nose: Nares normal. Septum midline. Mucosa normal. No drainage or sinus tenderness Throat: Lips, mucosa, and tongue normal. Teeth and gums normal Neck: supple, symmetrical, trachea midline. Lungs: clear to auscultation bilaterally Heart: regular rate and rhythm, S1, S2 normal, no murmur, click, rub or gallop Abdomen: soft, non-tender. Bowel sounds normal. No masses, No organomegaly Extremities: extremities normal, atraumatic, no cyanosis or edema Skin: Skin color, texture, turgor normal. No rashes or lesions Lymph nodes: No lymphadenopathy Neuro: No obvious focal deficit Exam as above PATH LABS Labs from April 05 showed creatinine 0.9 GFR 58 bilirubin 1.1 hemoglobin 10.3 WBC 4.8 MCV 100.6 platelet 239,000 neutrophil 48% lymphocyte 36% @IMAGEIMP@ Assessment: Plan: There are no active problems to display for this patient. Macrocytic anemia. Previous workup showed slightly low GFR and normal iron and B12 level. TSH was also normal. Serum protein electrophoresis also revealed no M spike. Her anemia is likely secondary to mild renal insufficiency or may be underlying evolving bone marrow disorders like MDS. We will repeat iron studies with soluble transferrin receptor, TSH, methylmalonic acid level and vitamin B12 level. She will continue oral iron 65 mg daily with vitamin B12 1 mg daily. I will discuss these labs with her in 1 week. There is no need for bone marrow biopsy at this time as long as blood is more than 10. There is no need for Procrit injection as long as platelets more than 10. Hypothyroidism. Patient is on levothyroxine. ? TOBACCO COUNSELING She is not a tobacco/nicotine user. 04/11/2025 Nelson Marvin MD documented in this encounter Plan of Treatment Upcoming Encounters Date Type Department Care Team (Late st Contact Info) Description 04/18/2025 4:30 PM CDT Telephone Check Up [facility] Oncology and Hematology - [place] [address] [facility] [address] [place] [address] Nelson Marvin MD [address] [facility] [address] [place] [address] Scheduled Orders Name Type Priority Associated Diagnoses Orde r Schedule FERRITIN Lab Routine Chronic anemia Expected: 04/11/2025, Expires: 04/11/2026 IRON, TIBC, AND PERCENT SATURATION Lab Routine Chronic anemia Expected: 04/11/2025, Expires: 04/11/2026 METHYLMALONIC ACID Lab Routine Chronic anemia Expected: 04/11/2025, Expires: 04/11/2026 TRANSFERRIN RECEPTOR TFR SOLUBLE Lab Routine Chronic anemia Expected: 04/11/2025, Expires: 04/11/2026 TSH Lab Routine Chronic anemia Expected: 04/11/2025, Expires: 04/11/2026 documented as of this encounter Visit Diagnoses Diagnosis Chronic anemia- Primary Anemia, unspecified documented in this encounter
--- OUTSIDE RECORDS SUMMARY | 2025-04-11 10:33 | XMS_ITS | Clinical Summary ---
Author Organization [facility] Carmen mcleod Iggy Address [address] [place] [address] Care Team Providers Care Insurance Actuary Name Role Phone Unavailable Primary Care Provider [...] Encounters Date Type Department Care Team Description 04/11/2025 10:00 AM CDT Office Visit [facility] Oncology and Hematology - [place] [address] [place] [address] Nelson Marvin MD Chronic anemia (Primary Dx) 04/05/2025 Orders Only [facility] Oncology and Hematology - [place] [address] [place] [address] Nelson Marvin MD 03/30/2025 Orders Only [facility] Oncology and Hematology - [place] [address] [place] [address] Nelson Marvin MD Chronic anemia [...] on file 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 Gender Identity Not on file Sexual Orientation [...] oz) 04/11/2025 9:48 A M CDT Height 170.2 cm (5' 7) 12/30/2022 3:51 PM CDT Body Mass Index 32.61 12/30/2022 3:51 PM CDT Plan of Treatment Upcoming Encounters Date Type Department Care Team (Late st Contact Info) Description 04/18/2025 4:30 PM CDT Telephone Check Up [facility] Oncology and Hematology - [place] [address] [facility] [address] [place] [address] Nelson Marvin MD [address] [facility] [address] [place] [address] Health Maintenance Due Date Last [...] 01/15/20 21, 01/14/2021, 03/25/2019, Additional history exists [place] ([place]) Preventative Visit/Annual Wellness Visit 09/07/2024 OSTEOPOROSIS SCREENING 12/31/2024 INFLUENZA VACCINE (#1) 2025 RSV VACCINE (60+ or ) (1 - 1-dose 75+ series) 12/31/2034 Procedures Procedure Name Priority Date/Time Associated Diagnosis Comments COMPREHENSIVE METABOLIC PANEL Routine 04/05/2025 2:13 PM CDT from Last 3 Months Results * COMPREHENSIVE METABOLIC PANEL (04/05/2025 2:13 PM CDT) Blood us Nelson Marvin MD CHEMISTRY ORDERABLES Final Resu lt from Last 3 Months Insurance [place], [place] [id number] [place] [address]
--- OUTSIDE RECORDS SUMMARY | 2025-04-11 10:33 | XMS_ITS | Encounter Summary ---
Author Organization [facility] Meetyl [facility] Address [address] [place] [address] Care Team Providers Care Sieve Repairer Name Role Phone Unavailable Primary Care Provider Unavailabl e Encounter Details Date Type Department Care Team (Late Contact Info) Description 04/05/2025 Orders Only [facility] Oncology and Hematology [facility] [address] [place] [address] Nelson Marvin MD [facility] [employer] [address] [place] [address] Social History Tobacco Use Types Packs/Day Years Used Date Smoking Tobacco: Never Smokeless Tobacco: Never Alcohol Use Standard Drinks/Week Comments Not Currently 0 (1 standard drink = 0.6 oz pur e alcohol) Comments Unknown Sex and Gender Information Value Date Recorded Sex Assigned at Not on file 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 Gender Identity Not on file Sexual Orientation Not on file documented as of this encounter Plan of Treatment Upcoming Encounters Date Type Department Care Team (Late st Contact Info) Description 04/18/2025 4:30 PM CDT Telephone Check Up [facility] Oncology [facility] [address] [place] [address] Nelson Marvin MD [address] [employer] [address] [place] [address] documented as of this encounter Procedures Procedure Name Priority Date/Time Associated Diagnosis Comments COMPREHENSIVE METABOLIC PANEL Routine 04/05/2025 2:13 PM CDT documented in this encounter Results * COMPREHENSIVE METABOLIC PANEL (04/05/2025 2:13 PM CDT) Blood Nelson Marvin MD CHEMISTRY ORDERABLES Final Resu lt documented in this encounter Visit Diagnoses Not on filedocumented in this encounter
[2025-04-11 11:55] LABS: Iron 107 ug/dL (37-170)
[2025-04-11 12:05] LABS: Percent Iron Saturation 41 % (20-50)
[2025-04-11 12:36] LABS: Ferritin 683.00 ng/mL (11.1-264)
== END 2025-04-11 10:09 | disposition home or self-care (01) ==
LOC: ANHLAB 10:09
PROVIDERS: PCP Internal Medicine; Visit Provider Internal Medicine Hematology & Oncology
DX: D64.9 Anemia, unspecified (principal)
CPT/HCPCS: 36415; 82728; 83540; 83550; 83921; 84238

== ENCOUNTER 2025-06-20 14:18 | Outpatient (NON) | payer MEDICARE, SELFPAY ==
--- OUTSIDE RECORDS SUMMARY | 2025-06-20 16:15 | XMS_ITS | Clinical Summary ---
Author Organization [facility] Carmen mcleod Iggy Address [address] [place] [address] Care Team Providers Care Gas Torch Solderer Name Role Phone Unavailable Primary Care Provider [...] Encounters Date Type Department Care Team Description 05/23/2025 External Device Data STL ABSTRACTION Provider, Abstract 05/16/2025 External Device Data STL ABSTRACTION Provider, Abstract 04/18/2025 4:30 PM CDT Telephone Check Up [facility] Oncology and Hematology - [place] [address] [place] [address] Nelson Marvin MD Chronic anemia (Primary Dx) 04/18/2025 External Device Data STL ABSTRACTION Provider, Abstract 04/18/2025 Orders Only [facility] Oncology and Hematology - [place] [address] [place] [address] Nelson Marvin MD 04/14/2025 Orders Only [facility] Oncology and Hematology - [place] [address] [place] [phone] Nelson Marvin MD 04/11/2025 10:00 AM CDT Office Visit [facility] Oncology and Hematology - [place] [address] [place] [phone] Nelson Marvin MD Chronic anemia (Primary Dx) 04/11/2025 Orders Only [facility] Oncology and Hematology - [place] [address] [place] [phone] Nelson Marvin MD 04/05/2025 Orders Only [facility] Oncology and Hematology - [place] [address] Nelson Marvin MD 03/30/2025 Orders Only [facility] Oncology and Hematology - [place] [address] [place] [phone] Nelson Marvin MD Chronic anemia (Primary Dx) [...] on file 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 Gender Identity Not on file Sexual Orientation [...] Care Team (Late st Contact Info) Description 08/01/2025 3:30 PM BROADBAND INSTALLER Office Visit [facility] Oncology and Hematology - [place] [address] [facility] [address] [place] [address] Nelson Marvin MD [address] [facility] [address] [place] [address] Health Maintenance Due Date Last Done Comments Pre-Diabetes and Diabetes Screening 1960 DTAP/TDAP/TD VACCINES (1 - Tdap) 12/31/1978 COLORECTAL SCREENING 12/31/2004 Colorectal Cancer Screening 12/31/2004 FIT-DNA Q 3 years 12/31/2004 FIT/FOBT Q 1 year 12/31/2004 Flex Sig/CT Colonography Q 5 years 12/31/2004 PNEUMOCOCCAL VACCINE 50+ YEA RS (1 of 1 - PCV) 12/31/2009 ZOSTER VACCINE (1 of 2) 12/31/2009 OSTEOPOROSIS SCREENING 12/31/2024 INFLUENZA VACCINE (#1) 2025 BREAST CANCER SCREENING 03/13/2026 03/13/20, 03/13/2025, 01/14/2021, Additional history exists RSV VACCINE (60+ or ) (1 - 1-dose 75+ series) 12/31/2034 Procedures Procedure Name Priority Date/Time Associated Diagnosis Comments IRON, TIBC, AND PERCENT SATURATION Routine 04/11/2025 3:49 PM CDT CHG SOLUBLE TRANSFERRIN RECEPTOR Routine 04/11/2025 12:44 PM CDT METHYLMALONIC ACID Routine 04/11/2025 11 :27 AM CDT COMPREHENSIVE METABOLIC PANEL Routine 04/05/2025 2:13 PM CDT from Last 3 Months Results * IRON, TIBC, AND PERCENT SATURATION (04/11/2025 3:49 PM CDT) Blood Nelson Marvin MD CHEMISTRY ORDERABLES Final Resu lt * CHG SOLUBLE TRANSFERRIN RECEPTOR (04/11/2025 12:44 PM CDT) Nelson Marvin MD CHG - LABORATORY Final Result * METHYLMALONIC ACID (04/11/2025 11:27 AM CDT) Blood Nelson Marvin MD CHEMISTRY ORDERABLES Final Resu lt * COMPREHENSIVE METABOLIC PANEL (04/05/2025 2:13 PM CDT) Blood Nelson Marvin MD CHEMISTRY ORDERABLES Final Resu lt from Last [address] [place] [id number]
--- OUTSIDE RECORDS SUMMARY | 2025-06-20 16:15 | XMS_ITS | Clinical Summary ---
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
[2025-06-20 17:33] LABS: Add Urine Microscopic? YES; Appearance Urine Cloudy (Clear); Glucose Urine UA Negative (Negative); Leukocyte Esterase Ur 2+ LEU/UL (Negative); Nitrate Urine Negative (Negative); Non Pathogenic Casts 0-2; Specific Grav Ur 1.014 (1.001-1.035)
== END 2025-06-20 14:19 | disposition home or self-care (01) ==
LOC: ANHGOSHLAB 14:19
PROVIDERS: PCP Internal Medicine; Visit Provider Clinical Nurse Specialist
DX: R39.9 Unspecified symptoms and signs involving the genitourinary system (principal)
CPT/HCPCS: 81001; 87077; 87086; 87186

== ENCOUNTER 2025-06-26 11:02 | Outpatient (CLI) | payer MEDICARE, SELFPAY ==
--- NOTE | ~2025-06-26 | DEXA_ITS ---
Bone Density Report Name: ALON SALINAS Age: 65 Sex: Female Ethnicity: White Date of : 1960 Indication: postmenopausal; screening for osteoporosis; hysterectomy; Referring Provider: Kristin King Study: Bone densitometry was performed. Exam Date: June 26, 2025 Accession number: [id number] Bone Density: Region BMD T-score Z-score Classification AP Spine(L1-L4) 0.844 -1.8 -0.1 Osteopenia Femoral Neck (Left) 0.742 -1.0 0.6 Normal Total Hip (Left) 0.795 -1.2 0.0 Osteopenia Femoral Neck (Right) 0.665 -1.7 -0.1 Osteopenia Total Hip (Right) 0.821 -1.0 0.3 Normal Total Hip Mean 0.808 -1.1 0.2 Osteopenia World Health Organization criteria for BMD impression classify patients as: Normal (T-score at or above -1.0), Osteopenia (T-score between -1.0 and -2.5), or Osteoporosis (T-score at or below -2.5). 10-year Fracture Risk(1): Major Osteoporotic Fracture 8.7% Hip Fracture 1.0% Reported Risk Factors: [place] (), Neck BMD=0.665, BMI=33.8 (1) FRAX(R) Version 3.08. Fracture probability calculated for an untreated patient. Fracture probability may be lower if the patient has received treatment. Previous Exams: -- Region Exam Age BMD T-score BMD Change BMD Change Date g/cm2 vs Baseline vs Previous -- AP Spine (L1-L4) 06/26/2025 65 0.844 -1.8 -16.2%* -16.2%* 08/02/2014 54 1.007 -0.4 Total Hip(Left) 06/26/2025 65 0.795 -1.2 -21.7%* -21.7%* 08/02/2014 54 1.014 0.6 Total Hip(Right) 06/26/2025 65 0.821 -1.0 -20.9%* -20.9%* 08/02/2014 54 1.038 0.8 -- *Denotes significance at 95% confidence level, LSC for AP Spine = 0.022 g/cm2, LSC for Total Hip = 0.027 g/cm2 Clinical Information Provided by Patient: Has used the following medications: HRT (i.e. estrogen/hormone therapy), Vitamin D Has the following medical conditions: Hysterectomy Patient maximum height was 67 Menopause Age: 41 No regular weight bearing exercise Does not regularly consume dairy products Drinks caffeinated beverages Onset of menses at age 14 Number of children 2 Missed period for more than 6 months in a row Impression: The patient has low bone mass, based on the Total Spine T-score. The patient has an estimated ten-year risk of hip fracture of 1% and an estimated ten-year risk of major fracture of 8.7%, based on the WHO FRAX algorithm. The BMD for the AP Spine (L1-L4) decreased, changing by -16.2% since the last DXA exam. The BMD for the Total Hip(Left) decreased, changing by -21.7% since the last DXA exam. The BMD for the Total Hip(Right) decreased, changing by -20.9% since the last DXA exam. Discussion: BONE DENSITY IS LOW AT ONE OR MORE SKELETAL SITES. This patient's lowest T-score is low at one or more skeletal sites. It meets the World Health Organization's (WHO) criteria for ?low bone mass? (T-score between -1.0 and -2.5). The patient's 10-year risk of fracture as calculated by FRAX is less than the threshold where pharmacological therapy is recommended by the National Osteoporosis Foundation (NOF). However, all treatment decisions require clinical judgment and consideration of individual patient factors, including patient preferences, comorbidities, previous drug use, risk factors not captured in the FRAX model (e.g., frailty, falls, vitamin D deficiency, increased bone turnover, interval significant decline in bone density) and possible under or overestimation of fracture risk by FRAX. The patient should follow a healthful lifestyle (good nutrition with adequate calcium and vitamin D, and appropriate weight-bearing exercise). Follow-Up: Consider repeating this study in 2 years to reassess this patient's status, or sooner if there is some new clinical indication. Reported by: KATARINA on 06/26/2025 11:27:00 AM. Reviewed, dictated and finalized at location A.
== END 2025-06-26 11:03 | disposition home or self-care (01) ==
LOC: MICIMG 11:03
PROVIDERS: PCP Internal Medicine; Visit Provider Nurse Practitioner
DX: Z78.0 Asymptomatic menopausal state (principal); M85.88 Other specified disorders of bone density and structure, other site; M85.852 Other specified disorders of bone density and structure, left thigh; M85.851 Other specified disorders of bone density and structure, right thigh
CPT/HCPCS: 77080

== ENCOUNTER 2025-07-20 15:02 | Outpatient (CLI) | payer MEDICARE, SELFPAY ==
--- OUTSIDE RECORDS SUMMARY | 2025-07-20 15:06 | XMS_ITS | Clinical Summary ---
Author Organization [facility] Carmen Parkinson Address [address] [place] [address] Care Team Providers Care Hospice Executive Director Name Role Phone Unavailable Primary Care Provider [...] Encounters Date Type Department Care Team Description 07/05/2025 External Device Data STL ABSTRACTION Provider, Abstract 07/04/2025 External Device Data STL ABSTRACTION Provider, Abstract 06/28/2025 External Device Data STL ABSTRACTION Provider, Abstract 06/27/2025 External Device Data STL ABSTRACTION Provider, Abstract 05/23/2025 External Device Data STL ABSTRACTION Provider, Abstract 05/16/2025 External Device Data STL ABSTRACTION Provider, Abstract from Last 3 Months Family History Medical [...] on file Legal Sex Female 6:47 PM STAGE HAND Gender Identity Not on file Sexual Orientation [...] st Contact Info) Description 08/01/2025 3:30 PM STAGE HAND Office Visit [facility] Oncology and Hematology - [place] [address] [facility] [address] [place] [address] Nelson Marvin MD [address] [facility] [address] [place] [address] Health Maintenance Due Date Last Done Comments Pre-Diabetes and Diabetes Screening 1960 DTAP/TDAP/TD VACCINES (1 - Tdap) 12/31/1978 COLORECTAL SCREENING 12/31/2004 Colorectal Cancer Screening 12/31/2004 FIT-DNA Q 3 years 12/31/2004 FIT/FOBT Q 1 year 12/31/2004 Flex Sig/CT Colonography Q 5 years 12/31/2004 PNEUMOCOCCAL VACCINE 50+ YEA RS (1 of 1 - PCV) 12/31/2009 ZOSTER VACCINE (1 of 2) 12/31/2009 [place] ([place]) Preventative Visit/Annual Wellness Visit 09/07/2024 OSTEOPOROSIS SCREENING 12/31/2024 INFLUENZA VACCINE (#1) 2025 BREAST CANCER SCREENING 03/13/2026 03/13/20, 03/13/2025, 01/14/2021, Additional history exists RSV VACCINE (60+ or ) (1 - 1-dose 75+ series) 12/31/2034 Insurance
--- OUTSIDE RECORDS SUMMARY | 2025-07-20 15:06 | XMS_ITS | Clinical Summary ---
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
[2025-07-20 15:39] LABS: Hematocrit 33.2 % (37.0-47.0); Hemoglobin 10.6 g/dL (12.0-15.0); Mean Corpuscular HGB Conc 31.9 g/dl (32-36); Mean Corpuscular Hemoglobin 32.8 pg (26-34); Mean Corpuscular Volume 102.8 fl (80-100); Platelet Count Result 255 k/mm3 (150-375); Red Blood Count 3.23 M/mm3 (4.2-5.4); White Blood Count 6.0 K/mm3 (4.5-10.0)
[2025-07-20 16:48] LABS: Iron 65 ug/dL (37-170)
[2025-07-20 16:58] LABS: Percent Iron Saturation 26 % (20-50)
== END 2025-07-20 15:03 | disposition home or self-care (01) ==
LOC: ANHLAB 15:03
PROVIDERS: PCP Clinical Nurse Specialist; Visit Provider Internal Medicine Hematology & Oncology
DX: D64.9 Anemia, unspecified (principal)
CPT/HCPCS: 36415; 82728; 83540; 83550; 84238; 85027

== ENCOUNTER 2025-07-31 11:49 | Outpatient (CLI) | payer MEDICARE, SELFPAY ==
[2025-07-31 13:31] LABS: Toxigenic C. Diff NEGATIVE (NEGATIVE)
--- OUTSIDE RECORDS SUMMARY | 2025-07-31 13:52 | XMS_ITS | Clinical Summary ---
Author Organization [facility] Carmen mcleod Iggy Address [address] [place] [address] Care Team Providers Care Multiple Games Dealer Name Role Phone Unavailable Primary Care Provider [...] Encounters Date Type Department Care Team Description 07/25/2025 External Device Data STL ABSTRACTION Provider, Abstract 07/24/2025 Orders Only [facility] Oncology and Hematology - [place] [address] [place] [address] Nelson Marvin MD 07/21/2025 Orders Only [facility] Oncology and Hematology - [place] [address] [place] [address] Nelson Marvin MD 07/05/2025 External Device Data STL ABSTRACTION Provider, [...] on file Legal Sex 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 Gender Identity Not on file Sexual [...] st Contact Info) Description 08/01/2025 3:30 PM LITHOGRAPH OPERATOR Office Visit [facility] Oncology and Hematology - [place] [address] [facility] [address] [place] [address] Nelson Marvin MD [address] [facility] [address] [place] [address] Health Maintenance Due Date Last [...] Procedure Name Priority Date/Time Associated Diagnosis Comments CHG SOLUBLE TRANSFERRIN RECEPTOR Routine 07/20/2025 11:50 AM LITHOGRAPH OPERATOR IRON, TIBC, AND PERCENT SATURATION Routine 07/20/2025 11:04 AM LITHOGRAPH OPERATOR CBC WITH AUTODIFFERENTIAL Routine 2024 11:00 AM LITHOGRAPH OPERATOR from Last 3 Months Results * CHG SOLUBLE TRANSFERRIN RECEPTOR (07/20/2025 11:50 AM LITHOGRAPH OPERATOR) us Nelson Marvin MD CHG - LABORATORY Final Result * IRON, TIBC, AND PERCENT SATURATION (07/20/2025 11:04 AM LITHOGRAPH OPERATOR) Blood us Nelson Marvin MD CHEMISTRY ORDERABLES Final Resu lt * CBC WITH AUTODIFFERENTIAL (07/20/2025 11:00 AM LITHOGRAPH OPERATOR) Blood us Nelson Marvin MD HEMATOLOGY ORDERABLES Final Res ult from Last 3 Months Insurance [facility]
--- OUTSIDE RECORDS SUMMARY | 2025-07-31 13:53 | XMS_ITS | Clinical Summary ---
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
[2025-08-03 01:07] LABS: Pancreatic Elastase, Fecal >800 (>200)
[2025-08-03 14:08] LABS: Calprotectin, Fecal 197 ug/g (0-120)
== END 2025-07-31 11:50 | disposition home or self-care (01) ==
PROVIDERS: PCP Clinical Nurse Specialist; Visit Provider Nurse Practitioner Family
DX: R19.7 Diarrhea, unspecified (principal)
CPT/HCPCS: 82653; 83993; 87045; 87046; 87427; 87493

== ENCOUNTER 2025-08-08 03:26 | Day surgery (SDC) | payer MEDICARE, SELFPAY ==
[2025-08-07 12:23] VITALS: BMI 32.9
--- OUTSIDE RECORDS SUMMARY | 2025-08-08 03:29 | XMS_ITS | Clinical Summary ---
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
--- OUTSIDE RECORDS SUMMARY | 2025-08-08 03:29 | XMS_ITS | Clinical Summary ---
Author Organization [facility] Carmen mcleod Iggy Address [address] [place] [address] Care Team Providers Care Accounts Receivable Bookkeeper Name Role Phone Unavailable Primary Care Provider [...] Encounters Date Type Department Care Team Description 08/01/2025 3:30 PM CODING SPECIALIST Office Visit [facility] Oncology and Hematology - [place] [address] [place] [address] Nelson Marvin MD Chronic anemia (Primary Dx) 07/25/2025 External Device Data STL ABSTRACTION Provider, Abstract 07/24/2025 Orders Only [facility] Oncology and Hematology - [place] [address] [place] [address] Nelson Marvin MD 07/21/2025 Orders Only [facility] Oncology and Hematology - [place] [address] [place] [address] Nelson Marvin MD 07/05/2025 External Device Data [...] on file Legal Sex Female 6:47 PM CODING SPECIALIST Gender Identity Not on file Sexual Orientation Not on file Last Filed Vital Signs Vital Sign Reading Time Taken Comments Blood Pressure 139/74 08/01/2025 3:27 PM CODING SPECIALIST Pulse 79 08/01/2025 3:27 PM CODING SPECIALIST Temperature 36.6 C (97.9 F) 08/01/2025 3:27 PM CODING SPECIALIST Respiratory Rate 15 08/01/2025 3:27 PM CODING SPECIALIST Oxygen Saturation 97% 08/01/2025 3:27 PM CODING SPECIALIST Inhaled Oxygen Concentration - - Weight 98 kg (216 lb) 08/01/2025 3:27 PM CODING SPECIALIST Height 170.2 cm (5' 7) 12/30/2022 3:51 PM CDT Body Mass Index 33.83 12/30/2022 3:51 PM CDT Plan of Treatment Upcoming Encounters Date Type Department Care Team (Late st Contact Info) Description 11/21/2025 3:45 PM CDT Office Visit [facility] Oncology and Hematology - [place] [address] [place] [address] Nelson Marvin MD [address] [facility] [address] [place] [address] Health Maintenance Due Date Last [...] SOLUBLE TRANSFERRIN RECEPTOR Routine 07/20/2025 11:50 AM CODING SPECIALIST IRON, TIBC, AND PERCENT SATURATION Routine 07/20/2025 11:04 AM CODING SPECIALIST CBC WITH AUTODIFFERENTIAL Routine 2024 11:00 AM CODING SPECIALIST from Last 3 Months Results * CHG SOLUBLE TRANSFERRIN RECEPTOR (07/20/2025 11:50 AM CODING SPECIALIST) us Nelson Marvin MD CHG - LABORATORY Final Result * IRON, TIBC, AND PERCENT SATURATION (07/20/2025 11:04 AM CODING SPECIALIST) Blood us Nelson Marvin MD CHEMISTRY ORDERABLES Final Resu lt * CBC WITH AUTODIFFERENTIAL (07/20/2025 11:00 AM CODING SPECIALIST) Blood us Nelson Marvin MD HEMATOLOGY ORDERABLES Final Res ult from Last 3 Months Insurance [facility]
[2025-08-08 09:58] VITALS: BP 136/76; PULSE 91; RESP 14; TEMP 36.2; O2SAT 100; BMI 33.3
--- NOTE | 2025-08-08 10:16 | WPDANESEPPF ---
Anes - Initial Pre Proc Eval Procedure: Operation Date: 08/08/25 11:30 Proposed Procedures p Esophagogastroduodenoscopy - Enrrique Armando MD Date/Time: 08/08/25 10:16 Surgeon: Enrrique Armando MD Pre Op Diagnosis: Epigastric pain Patient Data Age: 65 Gender: F Height: 1.7 m Weight: 96.4 kg Last Vital Signs Temp 36.2 C L 08/08/25 09:58 Pulse 91 08/08/25 09:58 Resp 14 08/08/25 09:58 BP 136/76 08/08/25 09:58 Pulse Ox 100 08/08/25 09:58 O2 Del Method Room Air 08/08/25 09:58 Allergies Allergy/AdvReac Type Severity Reaction Status Date / Time Penicillins Allergy Unknown Hives Verified 08/08/25 10:07 Home Medications ?Medication ?Instructions ?Recorded ?Confirmed ?Type cyanocobalamin (vitamin B-12) 1,000 mcg PO DAILY 09/19/19 08/08/25 History 1,000 mcg/mL oral drops (Vitamin B-12) ibuprofen 600 mg tablet 600 mg PO QAM 03/11/22 08/08/25 History levothyroxine 175 mcg tablet 175 mcg PO DAILY #90 tabs 05/09/25 08/08/25 Rx sertraline 100 mg tablet 150 mg (1.5 x 100 mg) PO DAILY 05/09/25 08/08/25 Rx #135 tabs cholecalciferol (vitamin D3) 25 mcg PO DAILY 06/20/25 08/08/25 History ferrous sulfate 325 mg (65 mg 325 mg PO BID 06/20/25 08/08/25 History iron) tablet dicyclomine 10 mg capsule 10 mg PO TID #90 caps 07/28/25 08/08/25 Rx ascorbic acid (vitamin C) 500 mg 500 mg PO DAILY 08/07/25 08/08/25 History tablet (Vitamin C) Patient hx anesthesia problems: none Family hx anesthesia problems: none Results Review: All pre-operative results and documents have been reviewed as part of the pre-operative evaluation. [facility] Past Medical History Medical History Vitamin B12 deficiency anemia Depression with anxiety Hemorrhoids Hernia Hypothyroidism Surgical History Surgical History H/O umbilical hernia repair H/O: hysterectomy H/O hand surgery screws in fingers Family History Family History Father Diabetes mellitus Hypertension Family history of malignant neoplasm Family history of diabetes mellitus in first degree relative Mother Hypertension Family history of heart disease in male family member before age 55 Social History Social History Social History: caffeine- 3 cups Smoking status: Never smoker Alcohol intake: never Alcohol use details: Pt drinks rarely. Substance use: never Substance use type: does not use Lack of Transportation: No Lack of Food: Never True Current Housing: I Have Housing Concerned About Future Housing: No Difficulty Paying Gas/Electric Bills: No Difficulty Paying for Meds: No Currently Unemployed: No Education: Associate Degree Difficulty w/ Childcare or Family Care: No Living arrangements: with family Spiritual care concerns: No Anes - Eval Final PreProcedure Day of Procedure 08/08/25 10:16 Patient weight: obese Heart: regular rate and rhythm Lungs: clear to auscultation Airway: Mallampati scale class III Neurological: alert and oriented Last oral intake: >/= 8 hours ASA classification: III Emergent: no Anesthetic plan: proceed Anesthesia type and monitoring: general GIVS and standard monitoring Results Review: All pre-operative results and documents have been reviewed as part of the pre-operative evaluation. Informed Consent: The patient's anesthetic plan and its attendant risks and benefits were discussed with the patient/family/POA. Questions were solicited and answers provided to the satisfaction of the patient/family/POA.
[2025-08-08] MEDS: LACTATED RINGERS 1,000 ML 150 ML IV CONT (10:18)
--- NOTE | 2025-08-08 10:54 | WPDHPUPDATE1 ---
History and Physical Update Update Date/Time: 08/08/25 10:54 History and Physical has been reviewed, including an updated exam of the patient. There are NO changes in the patient's condition. Risks, benefits, and alternatives have been discussed and questions answered. Patient agrees to proceed with procedure.
--- NOTE | 2025-08-08 11:07 | S_PTH ---
PATIENT: Lissa Bryant LOC: [facility] Li#:[id number] AGE/SX: 65/F ROOM: RE08/08/[address]: Enrrique Armando MD : 1960 BED: DIS: 08/08/2025 SPEC #: [id number] RECD: 08/08/25 11:32 STATUS: LUIS HIGH #: [id number] ODELL: 08/08/25 11:[address]: Enrrique Armando DEPT: [facility] Surgical RECD BY: Rohit Kelly ENTERED: 08/08/25 11:34 SP TYPE: Surgical OTHR DR: Susy Jasso, MARYA Tissues: A - Esophageal Biopsy B - Gastric Biopsy C - Small Bowel Bx D - Gastric Polyp Procedures: Hematoxylin and Eosin Stain Gross and Microscopic Level 4 CD [id number]
[2025-08-08 11:11] VITALS: BP 120/66; PULSE 69; RESP 17; O2SAT 99
[2025-08-08 11:21] VITALS: BP 126/72; PULSE 65; RESP 15; O2SAT 100
[2025-08-08 11:31] VITALS: BP 125/72; PULSE 66; RESP 17; O2SAT 100
== END 2025-08-08 11:42 | disposition home or self-care (01) ==
PROVIDERS: PCP Clinical Nurse Specialist; Referring Provider Nurse Practitioner Family; Visit Provider Internal Medicine Gastroenterology
PROC: 0DJ08ZZ Inspection of Upper Intestinal Tract, Via Natural or Artificial Opening Endoscopic (ICD-10-PCS; CPT 43239; principal; 2025-08-08 11:30)
DX: K21.00 Gastro-esophageal reflux disease with esophagitis, without bleeding (principal); D21.4 Benign neoplasm of connective and other soft tissue of abdomen; R19.7 Diarrhea, unspecified; E66.9 Obesity, unspecified; Z68.33 Body mass index [BMI] 33.0-33.9, adult
CPT/HCPCS: 43239; 43251; 88305; 88342; J2003; J2704; J7120